=== PATIENT | male | born 1965 | race Caucasian/White ===

== ENCOUNTER 2020-06-03 13:17 | Emergency (ER) | payer OTHER ==
[2020-06-03 14:26] LABS: BASOPHIL 0.4 % (0-2); EOSINOPHIL 2.7 % (0-5); HGB 16.1 g/dl (13.2-18.0); LYMPHOCYTE 28.7 % (15-48); MCH 32.5 pg (25.0-31.0); MCV 92.9 fL (78.0-100.0); MONOCYTE 8.8 % (0-12); MPV 9.3 fL (6.0-9.5); NEUTROPHIL 59.2 % (41-80); NRBC 0; PLT 222 K/uL (150-400); RBC 4.95 M/uL (4.70-6.00); RDW 14.6 % (11.5-14.0); WBC 8.2 K/uL (4.0-10.5)
[2020-06-03 14:58] LABS: ALBUMIN 3.5 g/dL (3.4-5.0); BILIRUBIN - TOTAL 0.4 mg/dL (0.2-1.0); BUN/CREAT RATIO (CALC) 11.2 RATIO; CREATININE 0.98 mg/dL (0.67-1.17); GLOBULIN (CALCULATION) 4.3 g/dL; POTASSIUM 3.5 mmol/L (3.5-5.1); TOTAL PROTEIN 7.8 g/dL (6.4-8.2)
[2020-06-03 15:07] LABS: INR 1.17 (0.9-1.2); PROTHROMBIN TIME 14.1 SECONDS (11.4-13.6); PTT 31.3 SECONDS (22.2-34.7)
== END 2020-06-03 16:33 | disposition left against medical advice (07) ==
LOC: FER 13:17
PROVIDERS: Emergency Medicine
DX: R04.2 Hemoptysis (principal); I51.9 Heart disease, unspecified; F17.210 Nicotine dependence, cigarettes, uncomplicated; Z95.5 Presence of coronary angioplasty implant and graft; Z88.5 Allergy status to narcotic agent; Z86.79 Personal history of other diseases of the circulatory system; Z53.8 Procedure and treatment not carried out for other reasons
CPT/HCPCS: 36415; 71250; 80053; 85025; 85610; 85730